=== PATIENT | female | born 1970 | race Caucasian/White ===

== ENCOUNTER 2018-07-15 19:16 | Emergency (ER) | payer MEDICAID ==
[~2018-07-15] VITALS: Ht 157.5 cm; Wt 118.2 kg
[~2018-07-15 19:16] MED LIST: ALBU6.7H INH; ATOR20TA66 PO; AZIT250T PO; CARV25TA2 PO; DICL-194 PO; DIPH-186 PO; GABA-532 PO; HYDR-4353 PO; HYDR25TA4 PO; LEVO100T9 PO; MEDR10TA PO; METH-360 PO; NITR100C6 PO; OMEP20CA4 PO; SUCR1TAB34 PO; TRAM50TA2 PO; VENL75CA55 PO
[2018-07-15] MEDS ORDERED: DIPH1TAB PO (21:09)
[2018-07-15 21:41] VITALS: BP 138/73
== END 2018-07-15 21:47 | disposition home or self-care (01) ==
LOC: ER 19:17
DX: R10.32 Left lower quadrant pain (principal); R19.7 Diarrhea, unspecified; E03.9 Hypothyroidism, unspecified; F12.90 Cannabis use, unspecified, uncomplicated; Z90.49 Acquired absence of other specified parts of digestive tract; Z98.51 Tubal ligation status; Z91.030 Bee allergy status; Z91.013 Allergy to seafood; Z79.899 Other long term (current) drug therapy
CPT/HCPCS: 99283

== ENCOUNTER 2019-07-29 19:41 | Emergency (ER) | payer MEDICAID ==
[~2019-07-29] VITALS: Ht 157.5 cm; Wt 138.6 kg
[~2019-07-29 19:41] MED LIST changes: -ALBU6.7H INH; +ALBU6.7H9 INH; +DIPH1TAB PO; +FLUC150T66 PO; -HYDR-4353 PO; +LACT1CAP65 PO; +METR-159 PO; +ONDA4TAB6 PO
--- NOTE | 2019-07-29 20:10 | NUR ---
warm blanke to abdomen for comfort and pain. call valdez in hand
[2019-07-29] MEDS ORDERED: ondansetron 4mg rapidly disintigrating tab PO ONE (21:10)
[2019-07-29] MEDS ORDERED: HYDROcodone/acetaminophen 5mg/325mg tablet PO ONE (21:10)
[2019-07-29] MEDS ORDERED: ONDA4TAB6 PO (22:07)
[2019-07-29] MEDS ORDERED: HYDR-4383 PO (22:07)
[2019-07-29 22:14] VITALS: BP 108/96
== END 2019-07-29 22:16 | disposition home or self-care (01) ==
LOC: ER 19:42
DX: N76.0 Acute vaginitis (principal); R10.32 Left lower quadrant pain; B96.89 Other specified bacterial agents as the cause of diseases classified elsewhere; I10 Essential (primary) hypertension; E03.9 Hypothyroidism, unspecified; G62.9 Polyneuropathy, unspecified; Z90.49 Acquired absence of other specified parts of digestive tract; Z98.890 Other specified postprocedural states; Z98.51 Tubal ligation status; F12.90 Cannabis use, unspecified, uncomplicated; Z91.030 Bee allergy status; Z91.013 Allergy to seafood; Z79.899 Other long term (current) drug therapy
CPT/HCPCS: 74176; 99284

== ENCOUNTER → 2023-11-05 | Outpatient (CLI) | payer MEDICAID ==
[~2023-11-05] MED LIST changes: +ALBU6.7H14 INH; -ALBU6.7H9 INH; -FLUC150T66 PO; +HYDR-4383 PO; -METR-159 PO
== END | disposition home or self-care (01) ==
LOC: RAD 11:38
PROVIDERS: ATTEND Nurse Practitioner Family
DX: S82.55XA Nondisplaced fracture of medial malleolus of left tibia, initial encounter for closed fracture (principal); S82.65XA Nondisplaced fracture of lateral malleolus of left fibula, initial encounter for closed fracture; M25.572 Pain in left ankle and joints of left foot; M76.62 Achilles tendinitis, left leg; M77.32 Calcaneal spur, left foot; Y93.89 Activity, other specified; X58.XXXA Exposure to other specified factors, initial encounter; Y92.89 Other specified places as the place of occurrence of the external cause; Y99.8 Other external cause status
CPT/HCPCS: 73610; 73620

== ENCOUNTER 2024-10-22 11:28 | Emergency (ER) | payer MEDICAID ==
[~2024-10-22] VITALS: Ht 162.6 cm; Wt 141.8 kg
[2024-10-22 12:09] LABS: UA COLLECTION TYPE CLN CATCH MIDSTREAM
[2024-10-22 12:10] LABS: CLARITY,URINE CLOUDY (Clear); COLOR,URINE AMBER (Yellow)
[2024-10-22 12:15] LABS: WBC,URINE 50-100 /HPF (0-4)
[2024-10-22 12:23] LABS: BACTERIA,URINE 2+ /HPF (Neg); RBC,URINE 20-50 /HPF (0-2)
[2024-10-22 12:24] LABS: SQUAMOUS EPITHELIAL CELL,UR MODERATE /LPF (FEW)
[2024-10-22 12:25] LABS: MUCUS STRANDS NONE SEEN /LPF (Neg)
--- NOTE | 2024-10-22 12:58 | Physician Documentation ---
History of Present Illness ~ Chief Complaint: Urinary Symptoms Stated Complaint: BLADDER INFECTION Time Seen by MD: 12:12 Primary Medical Doctor: Kelly LORENZANA HPI 54 Female presents to the ED with a complaint of urinary frequency and burning urination. States she does have a long history of urinary tract infections believes that is what is going on other today. denies any Fevers Day of Onset: Oct 22, 2024 Medication Reconciliation Allergies: Coded Allergies: bee pollen (Verified Allergy, Unknown, 07/29/19) shellfish derived (Verified Allergy, Unknown, 07/29/19) Scheduled Albuterol Sulfate (Proventil Hfa), 2 PUFFS INH Q6H Atorvastatin Calcium (Atorvastatin Calcium), 1 TABLET PO HS, (Reported) Azithromycin (Zithromax), 1 DOSPAK PO UD Carvedilol (Carvedilol), 1 TABLET PO BID, (Reported) Diclofenac Sodium (Diclofenac Sodium), 1 TABLET PO BID, (Reported) Diphenoxylate HCl/Atropine (Lomotil 2.5-0.025 mg Tablet), 1 TAB PO Q6H Gabapentin (Gabapentin), 2 CAP PO TID, (Reported) Hydrochlorothiazide (Hydrochlorothiazide), 1 TABLET PO DAILY, (Reported) Hydrocodone/Acetaminophen (Dante 5-325 Tablet), 1 TAB PO TID PRN Lactobacillus Acidophilus (Probiotic), 1 CAP PO Q8H Levofloxacin (Levofloxacin), 1 TAB PO DAILY Levothyroxine Sodium (Levothyroxine Sodium), 1 TABLET PO DAILY, (Reported) Medroxyprogesterone Acet (Provera), 1 TABLET PO HS, (Reported) Methocarbamol (Robaxin-750), 1 TAB PO Q12H Nitrofurantoin Monohyd/M-Cryst (Macrobid 100 mg Capsule), 1 CAP PO Q12H Omeprazole (Prilosec), 1 CAP PO FS, (Reported) Ondansetron Hcl (Zofran), 1 TAB PO Q6H PRN Ondansetron Hcl (Zofran), 1 TAB PO Q6H Phenazopyridine Hcl (Pyridium tablet), 1 TAB PO Q8H Sucralfate (Carafate), 1 TABLET PO QID, (Reported) Tramadol HCl (Tramadol HCl), 1 TABLET PO BID, (Reported) Venlafaxine Hcl (Effexor Xr), 1 CAP PO HS, (Reported) Scheduled PRN Diphenoxylate HCl/Atropine (Lomotil 2.5-0.025 mg Tablet), 1 TAB PO TID PRN for diarrhea, (Reported) Past Medical History Past Medical History: Peripheral Neuropathy, Hypertension, Inflammatory Bowel Dz, Hypothyroidism Past Surgical History: cholecystectomy, , tubal ligation Other Past Surgical History: endometrial ablation Alcohol Use: Rarely Drug Use: marijuana Lives with: Family Lives In: Home Occupation: employed Review of Systems All Other Systems at this time: Reviewed and Negative ROS As stated above in the HPI, otherwise all systems are reviewed and negative. Physical Exam Vital Signs: Temperature: 98.2, Source: Oral, Heart Rate: 84, Respiratory Rate: 16, BP: 113/65, Pulse Oximetry: 97, Weight: 141.800 Oxygen Flow Rate: 0 Physical Exam General: Alert, no apparent distress. Extremities: Normal range of motion, no deformity. Neurologic: Oriented x4. Psychiatric: Normal mood and affect. Skin: Normal color, warm and dry. No edema, no ecchymosis. Progress Results/Orders Results/Orders Vital Signs 10/22/24 10/22/24 10/22/24 11:36 12:39 13:15 Temp 98.2 98.5 Pulse 84 89 Resp 16 18 B/P (MAP) 113/65 139/87 Pulse Ox 97 98 O2 Flow Rate 0 Laboratory Tests Test 10/22/24 11:39 Urine Specimen Description Cln catch midstream Urine Color Emiliana Urine Clarity Cloudy Urine pH Urine Specific [place] Urine Protein Urine Glucose (UA) Urine Ketones Urine Occult Blood Urine Nitrite Urine Bilirubin Urine Urobilinogen Urine Leukocyte Esterase Urine RBC 20-50 Urine WBC 50-100 H Urine Squamous Epithelial Cells Moderate Urine Transitional Epithelial Cells Urine Bacteria 2+ Urine Mucus None seen Urine Culture Indicated Indicated Volume Urine Centrifuged 10 ml Urine Comment See note Microbiology Date/Time Source Procedure Growth Status 10/22/24 12:25 Urine Clean Catch Midstream Urine Culture - Preliminary Culture received. Resulted Medical Decision Making Findings 34-year-old female presents for suspected urinary tract infection based on her urinalysis. We will treat her empirically and advise her follow up with primary care for further evaluation Did bring a hand written abnormal result which indicated Klebsiella oxytoca positive result. Based on my discussion with Dr. burton the infectious disease specialist, he indicated starting patient on a fluoroquinolone like levofloxacin may be the best choice at this time. However ,we did obtain a urinalysis was a new culture. Follow up accordingly Urinary Diff Dx:Considerations: Include: AAA, , Aortic dissection, Appendicitis, Bowel obstruction, Cholelithiasis, Choleangitis, DJD, Ectopic , Hepatitis, HNP, Impaction, Intrauterine , Musculoskeletal pa in, Ovarian torsion, Pancreatitis, PID, Post-Op complication, Pyelonephritis, Renal failure, Strain, Urinary Obstruction, Urolithiasis, Urinary retention, UTI, Vaginitis, Other Departure Disposition: HOME / SELF CARE / HOMELESS Impression: Primary Impression: Acute urinary tract infection Condition: Stable Discharge Instructions: Urinary Tract Infection, Adult Additional Instructions: Take medication as prescribed follow up for any worsening symptoms Referrals: NO PRIMARY CARE PROVIDER (PCP) Prescriptions Levofloxacin (Levofloxacin) 500 Mg Tablet 1 TAB PO DAILY for 10 Days, #10 TAB Prov: RYAN CALIX NP 10/22/24 Phenazopyridine Hcl (Pyridium tablet) 100 Mg Tablet 1 TAB PO Q8H for urinary discomfort for 2 Days, #6 TAB 0 Refills Prov: RYAN CALIX NP 10/22/24 Education Educated: Patient Educated regarding: diagnosis Signature Scribe Signature: x Attestation: Scribed for Ryan Calix Np by Ryan Esposito NP . 10/22/24 18:42 RYAN CALIX NP Oct 22, 2024 12:58
[2024-10-22] MEDS ORDERED: SULF1TAB48 PO (13:00)
[2024-10-22] MEDS ORDERED: PHEN-786 PO (13:00)
[2024-10-22 13:15] VITALS: BP 139/87; PULSE 89; RESP 18; TEMP 98.5; O2SAT 98
[2024-10-22] MEDS ORDERED: LEVO-65 PO (13:24)
== END 2024-10-22 13:29 | disposition home or self-care (01) ==
LOC: ER 11:28
DX: N39.0 Urinary tract infection, site not specified (principal); I10 Essential (primary) hypertension; G62.9 Polyneuropathy, unspecified; E03.9 Hypothyroidism, unspecified; F12.90 Cannabis use, unspecified, uncomplicated; Z90.49 Acquired absence of other specified parts of digestive tract; Z91.030 Bee allergy status; Z98.51 Tubal ligation status; Z91.040 Latex allergy status; Z79.899 Other long term (current) drug therapy
CPT/HCPCS: 81001; 87088; 99283

== ENCOUNTER 2025-03-22 13:13 | Emergency (ER) | payer MEDICAID ==
[~2025-03-22] VITALS: Ht 175.3 cm; Wt 124.4 kg
[~2025-03-22 13:13] MED LIST changes: +PHEN-786 PO
--- NOTE | 2025-03-22 13:19 | ELECTROCARDIOGRAPH REPORT ---
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 LEWIS Rosario Measurements Intervals [place] Rate: 76 P: 14 LA: 192 QRS: 39 QRSD: 95 T: -10 QT: 415 QTc: 467 Interpretive Statements Sinus rhythm Low voltage, precordial leads Borderline repolarization abnormality Baseline wander in lead(s) I,III,aVL,V1,V2 Electronically Signed On 03-24-2025 18:02:[address] LEWIS Rosario Please click the below link to view image of tracing.
[2025-03-22 13:32] LABS: MEAN PLATELET VOLUME 7.4 FL (7.4-10.4); RED CELL DISTRIBUTION WIDTH 17.6 % (11.5-14.5)
--- NOTE | 2025-03-22 13:46 | RADIOLOGY REPORT ---
CHEST RADIOGRAPH Indication: CP Technique: Single frontal view of the chest was obtained Comparison: None FINDINGS: Lines and Tubes: None Lungs: No focal consolidation. Pleura: No effusion. No pneumothorax. Cardiomediastinal contours: Unremarkable Bones: No acute osseous abnormality. Questionable slight inferior subluxation of the left humeral head. IMPRESSION: No acute cardiopulmonary disease.
[2025-03-22 13:53] LABS: CREATININE 0.89 MG/DL (0.40-0.90); PRO BRAIN NATRIURETIC PEPTIDE 117 PG/ML (0-125); TOTAL CARBON DIOXIDE 35.3 MMOL/L (24-32); eCRCL 76 ML/MIN; eGFR 66 ML/MIN
[2025-03-22] MEDS ORDERED: potassium Cl 20 mEq SR tablet PO PRN (14:35)
[2025-03-22] MEDS ORDERED: potassium Cl 40MEQ/1/2NS 520ml 520 ML IV PRN (14:35)
--- NOTE | 2025-03-22 14:43 | Physician Documentation ---
History of Present Illness ~ Chief Complaint: Chest Pain Stated Complaint: CP NAUSEA Time Seen by MD: 14:31 Primary Medical Doctor: Kelly LORENZANA Mode of Arrival: POV, Ambulatory HPI 54-year-old female presents to the ED with a complaint of acute onset right- sided chest pain today while she was studying at [employer]. Denies any history of [place]. reports that the patient's pain was sharp in nature did not accompany shortness of breath but now she feels like out of it". She also has left-sided arm numbness and nausea Reports being an ongoing cigarette smoke Day of Onset: Mar 22, 2025 Medication Reconciliation Allergies: Coded Allergies: bee pollen (Verified Allergy, Unknown, 03/22/25) shellfish derived (Verified Allergy, Unknown, 03/22/25) Scheduled Albuterol Sulfate (Proventil Hfa), 2 PUFFS INH Q6H Atorvastatin Calcium (Atorvastatin Calcium), 1 TABLET PO HS, (Reported) Azithromycin (Zithromax), 1 DOSPAK PO UD Carvedilol (Carvedilol), 1 TABLET PO BID, (Reported) Diclofenac Sodium (Diclofenac Sodium), 1 TABLET PO BID, (Reported) Diphenoxylate HCl/Atropine (Lomotil 2.5-0.025 mg Tablet), 1 TAB PO Q6H Gabapentin (Gabapentin), 2 CAP PO TID, (Reported) Hydrochlorothiazide (Hydrochlorothiazide), 1 TABLET PO DAILY, (Reported) Hydrocodone/Acetaminophen ([place] 5-325 Tablet), 1 TAB PO TID PRN Lactobacillus Acidophilus (Probiotic), 1 CAP PO Q8H Levothyroxine Sodium (Levothyroxine Sodium), 1 TABLET PO DAILY, (Reported) Medroxyprogesterone Acet (Provera), 1 TABLET PO HS, (Reported) Methocarbamol (Robaxin-750), 1 TAB PO Q12H Nitrofurantoin Monohyd/M-Cryst (Macrobid 100 mg Capsule), 1 CAP PO Q12H Omeprazole (Prilosec), 1 CAP PO FS, (Reported) Ondansetron Hcl (Zofran), 1 TAB PO Q6H PRN Ondansetron Hcl (Zofran), 1 TAB PO Q6H Phenazopyridine Hcl (Pyridium tablet), 1 TAB PO Q8H Potassium Chloride* (K-Dur*), 1 TAB PO DAILY Sucralfate (Carafate), 1 TABLET PO QID, (Reported) Tramadol HCl (Tramadol HCl), 1 TABLET PO BID, (Reported) Venlafaxine Hcl (Effexor Xr), 1 CAP PO HS, (Reported) Scheduled PRN Diphenoxylate HCl/Atropine (Lomotil 2.5-0.025 mg Tablet), 1 TAB PO TID PRN for diarrhea, (Reported) Past Medical History Past Medical History: Peripheral Neuropathy, Hypertension, Inflammatory Bowel Dz, Hypothyroidism Past Surgical History: cholecystectomy, , tubal ligation Other Past Surgical History: endometrial ablation Alcohol Use: Rarely Drug Use: marijuana Lives with: Family Lives In: Home Occupation: employed Review of Systems All Other Systems at this time: Reviewed and Negative ROS As stated above in the HPI, otherwise all systems are reviewed and negative. Physical Exam Vital Signs: Temperature: 97.0, Source: Temporal, Heart Rate: 68, Respiratory Rate: 18, BP: 107/59, Pulse Oximetry: 98, Weight: 124.400 Oxygen Flow Rate: 0 Physical Exam General: Alert, no apparent distress. HEENT: PERRL, EOMI, no injection, moist mucous membranes. Neck: Full range of motion. Respiratory: Lungs clear, no respiratory distress. Chest: No accessory muscle use. Cardiovascular: Regular rate and rhythm, no murmurs. Gastrointestinal: Soft, nontender, nondistended. Bowels sounds present. Extremities: Normal range of motion, no deformity. Neurologic: Oriented x4. Psychiatric: Normal mood and affect. Skin: Normal color, warm and dry. No edema, no ecchymosis. Progress Results/Orders Results/Orders Completed Orders - FABIENNE FOX NP Ondansetron Inj. (Zofran 4mg/2ml Vial) (03/22/25 14:35) Mag & Alum Hydrox/Simeth Susp (Maalox Or (03/22/25 14:35) Lidocaine 2% Viscous (Xylocaine 2% Visco (03/22/25 14:35) Potassium Cl Sr Tablet (K-Dur Tablet) (03/22/25 14:35) Potassium Cl 40meq/1/2ns 520ml ([place] (03/22/25 14:35) Potassium Cl Inj (Potassium Cl Inj) (03/22/25 15:15) Potassium Cl Sr Tablet (K-Dur Tablet) (03/22/25 15:16) Potassium Cl 40meq/1/2ns 520ml ([place] (03/22/25 15:25) Potassium Cl Sr Tablet (K-Dur Tablet) (03/22/25 16:11) Medications Received in ER Medications (Trade) Dose Ordered Sig/Ailyn Route PRN Reason Start Time Stop Time Status Last Admin Dose Admin (Zofran 4mg/2ml vial) 4 mg ONCE ONCE IV 03/22/25 14:35 03/22/25 14:45 DC 03/22/25 15:08 4 MG (Maalox oral suspension) 30 ml ONCE ONCE PO 03/22/25 14:35 03/22/25 14:39 DC 03/22/25 15:11 30 ML (Xylocaine 2% Viscous 15mL cup) 15 ml Q4H PRN MM sore throat 03/22/25 14:35 03/22/25 16:24 DC 03/22/25 15:10 15 ML (K-DUR tablet) 40 meq ONCE STAT PO 03/22/25 15:16 03/22/25 15:19 DC 03/22/25 15:24 40 MEQ Potassium Chloride 520 ml @ 130 mls/hr ONCE ONCE IV 03/22/25 15:25 03/22/25 16:14 DC 03/22/25 15:39 130 MLS/HR (K-DUR tablet) 20 meq ONCE STAT PO 03/22/25 16:11 03/22/25 16:13 DC 03/22/25 16:16 20 MEQ Vital Signs 03/22/25 03/22/25 03/22/25 03/22/25 13:24 14:15 14:15 16:19 Temp 97.0 97.0 97.0 Pulse 68 68 67 Resp 18 15 18 20 B/P (MAP) 125/76 107/59 (75) 132/98 Pulse Ox 99 98 99 O2 Flow Rate 0 0 Laboratory Tests Test 03/22/25 13:24 03/22/25 15:06 White Blood Count 10.3 Red Blood Count 4.87 Hemoglobin 13.7 Hematocrit 40.7 Mean Corpuscular Volume 83.5 Mean Corpuscular Hemoglobin 28.2 Mean Corpuscular Hemoglobin Concent 33.7 Red Cell Distribution Width 17.6 H Platelet Count 457 H Mean Platelet Volume 7.4 Neutrophils (%) (Auto) 69.9 Lymphocytes (%) (Auto) 25.1 Monocytes (%) (Auto) 4.5 Eosinophils (%) (Auto) 0 Basophils (%) (Auto) 0.5 Neutrophils # (Auto) 7.2 Lymphocytes # (Auto) 2.6 Monocytes # (Auto) 0.5 Eosinophils # (Auto) 0.0 Basophils # (Auto) 0.1 CBC Comment Sodium Level 140 Potassium Level 2.5 *L Chloride Level 97 L Carbon Dioxide Level 35.3 H Anion Gap 8 Blood Urea Nitrogen 9 Creatinine 0.89 Estimated GFR/1.73 m2 66 BUN/Creatinine Ratio 10.1 Glucose Level 88 Calcium Level 9.1 Troponin I High Sensitivity 5 4 Pro-B-Type Natriuretic Peptide 117 Albumin 3.2 L Chemistry Comments Troponin I High Sens Percent Delta 20 Troponin I Hi Sens Absolute Change -1 Medical Decision Making Additional information obtaine: old records Findings Primary concerns with the patient had been her hypokalemia. She denies any further nausea and states that she is no longer having any chest pain Treat her with ongoing IV potassium and discharge her with p.o. potassium Heart Score: 2 Differential Dx:Considerations: Include: angina, aortic dissection, chest wall pain, cholelithiasis, CHF, costochondritis, esophageal reflux/spasm, gastritis, herpes zoster, myocardial infarction, pericarditis, pleuritis, pancreatitis, pneumonia, pneumothorax, pulmonary embolus, other Departure Disposition: 01 HOME / SELF CARE / HOMELESS Impression: Primary Impression: Hypokalemia Condition: Improved Referrals: NO PRIMARY CARE PROVIDER (PCP) Prescriptions Potassium Chloride* (K-Dur*) 20 Meq Tab.prt.sr 1 TAB PO DAILY for 10 Days, #10 TAB Prov: FABIENNE FOX NP 03/22/25 Signature Scribe Signature: j Attestation: As stated above in the HPI, otherwise all systems are reviewed and negative. FABIENNE FOX NP Mar 22, 2025 14:43
[2025-03-22] MEDS: ondansetron/PF 4mg/2ml inj IV ONE (15:08)
[2025-03-22] MEDS: LIDOcaine 2% Viscous 15ml cup MM PRN (15:10)
[2025-03-22] MEDS: mag hydrox/Alum hydrox/simeth 30ml oral suspension PO ONE (15:11)
[2025-03-22] MEDS ORDERED: Potassium Cl inj 40 MEQ in normal saline 500ml IV soln 500 ML IV ONE (15:15)
[2025-03-22] MEDS: potassium Cl 20 mEq SR tablet PO STA ×2 (15:24→16:16)
[2025-03-22] MEDS: potassium Cl 40MEQ/1/2NS 520ml 520 ML IV ONE (15:39)
[2025-03-22] MEDS ORDERED: POTA-207 PO (16:04)
[2025-03-22 16:19] VITALS: BP 132/98; PULSE 67; RESP 20; TEMP 97; O2SAT 99
== END 2025-03-22 16:24 | disposition home or self-care (01) ==
LOC: ER 13:14
DX: E87.6 Hypokalemia (principal); E03.9 Hypothyroidism, unspecified; G62.9 Polyneuropathy, unspecified; F12.90 Cannabis use, unspecified, uncomplicated; I10 Essential (primary) hypertension; Z91.030 Bee allergy status; Z91.013 Allergy to seafood; Z98.51 Tubal ligation status; Z90.49 Acquired absence of other specified parts of digestive tract; Z79.899 Other long term (current) drug therapy
CPT/HCPCS: 36415; 71045; 80048; 83880; 84484; 85025; 93005; 96365; 96375; 99285; J2405; J3480; J7040

== ENCOUNTER 2025-04-23 21:45 | Inpatient (IN) | payer MEDICAID ==
[~2025-04-23] VITALS: Ht 157.5 cm; Wt 123.4 kg
--- NOTE | 2025-04-23 23:09 | RADIOLOGY REPORT ---
CHEST RADIOGRAPH INDICATION: sob TECHNIQUE: Single frontal view of the chest was obtained COMPARISON: DI CHEST,SINGLE VIEW on DOS: 03/22/25 FINDINGS: Lines and Tubes: None Lungs: Clear Pleura: No effusion. No pneumothorax. Cardiomediastinal contours: Unremarkable Bones: Unremarkable IMPRESSION: 1. No acute disease.
[2025-04-24] MEDS: ketorolac trometh 15mg/ml vial 15 MG/ML ML IM ONE (00:17)
[2025-04-24 00:37] LABS: MEAN PLATELET VOLUME 8.2 FL (7.4-10.4); RED CELL DISTRIBUTION WIDTH 15.2 % (11.5-14.5)
[2025-04-24 00:41] LABS: CREATININE 0.98 MG/DL (0.40-0.90); TOTAL CARBON DIOXIDE 35.0 MMOL/L (24-32); eCRCL 52 ML/MIN; eGFR 59 ML/MIN
[2025-04-24] MEDS: potassium Cl 20mEq/100mL bag 100 ML IV SCH (00:50)
--- NOTE | 2025-04-24 00:53 | RADIOLOGY REPORT ---
EXAM: DI SCAPULA HISTORY: Pain with numbness and tingling in her bilateral upper extremities COMPARISON: None TECHNIQUE: Four views of the left shoulder were performed. FINDINGS: No acute fracture or dislocation are identified about the left shoulder. Moderate degenerative changes of the glenohumeral and acromioclavicular joints. IMPRESSION: 1. No acute fracture or dislocation is identified about the left shoulder. 2. Degenerative changes noted.
--- NOTE | 2025-04-24 00:55 | RADIOLOGY REPORT ---
INDICATION: Pain with numbness and tingling in her bilateral upper extremities TECHNIQUE: 3 views of the thoracic spine were obtained. COMPARISON: None FINDINGS: There is no evidence of fracture, subluxation and/or dislocation. The alignment is anatomical. The paravertebral soft tissues were unremarkable. IMPRESSION: 1. Of the visualized spine, there is no evidence for fracture or subluxation.
--- NOTE | 2025-04-24 00:57 | Physician Documentation ---
History of Present Illness ~ General Chief Complaint: Multiple Medical Complaints Stated Complaint: ALL OVER BODY PAIN Time Seen by MD: 22:15 Primary Medical Doctor: Kelly LORENZANA History of Present Illness Initial Comments This is a very pleasant 54-year-old female that presents to the emergency department for evaluation of intermittent tingling in her hands and feet over the last couple of days intermittent tingling in her face and genital region over the last couple of days although patient reports that the numbness and tingling in her genital region and face has subsided. Patient reports that she has pain in her right shoulder just below the scapula and the thoracic spine. Patient reports mild nausea but no vomiting no fevers no chills, reports significant amounts of diarrhea over the course of the last week. Patient denies chest pain chest pressure or headache at this time. Patient denies any other symptoms at this time. Medication Reconciliation Allergies: Coded Allergies: bee pollen (Verified Allergy, Unknown, 03/22/25) shellfish derived (Verified Allergy, Unknown, 03/22/25) Scheduled Albuterol Sulfate (Proventil Hfa), 2 PUFFS INH Q6H Atorvastatin Calcium (Atorvastatin Calcium), 1 TABLET PO HS, (Reported) Azithromycin (Zithromax), 1 DOSPAK PO UD Carvedilol (Carvedilol), 1 TABLET PO BID, (Reported) Diclofenac Sodium (Diclofenac Sodium), 1 TABLET PO BID, (Reported) Diphenoxylate HCl/Atropine (Lomotil 2.5-0.025 mg Tablet), 1 TAB PO Q6H Gabapentin (Gabapentin), 2 CAP PO TID, (Reported) Hydrochlorothiazide (Hydrochlorothiazide), 1 TABLET PO DAILY, (Reported) Hydrocodone/Acetaminophen ([place] 5-325 Tablet), 1 TAB PO TID PRN Lactobacillus Acidophilus (Probiotic), 1 CAP PO Q8H Levothyroxine Sodium (Levothyroxine Sodium), 1 TABLET PO DAILY, (Reported) Medroxyprogesterone Acet (Provera), 1 TABLET PO HS, (Reported) Methocarbamol (Robaxin-750), 1 TAB PO Q12H Nitrofurantoin Monohyd/M-Cryst (Macrobid 100 mg Capsule), 1 CAP PO Q12H Omeprazole (Prilosec), 1 CAP PO FS, (Reported) Ondansetron Hcl (Zofran), 1 TAB PO Q6H PRN Ondansetron Hcl (Zofran), 1 TAB PO Q6H Phenazopyridine Hcl (Pyridium tablet), 1 TAB PO Q8H Sucralfate (Carafate), 1 TABLET PO QID, (Reported) Tramadol HCl (Tramadol HCl), 1 TABLET PO BID, (Reported) Venlafaxine Hcl (Effexor Xr), 1 CAP PO HS, (Reported) Scheduled PRN Diphenoxylate HCl/Atropine (Lomotil 2.5-0.025 mg Tablet), 1 TAB PO TID PRN for diarrhea, (Reported) Past Medical History Past Medical History: Peripheral Neuropathy, Hypertension, Inflammatory Bowel Dz, Hypothyroidism Past Surgical History: cholecystectomy, , tubal ligation Other Past Surgical History: endometrial ablation Alcohol Use: Rarely Drug Use: marijuana Lives with: Family Lives In: Home Occupation: employed Review of Systems ROS As stated above in the HPI, otherwise all systems are reviewed and negative. Physical Exam Physical Exam Vital Signs: Temperature: 98.4, Source: Oral, Heart Rate: 86, Respiratory Rate: 16, BP: 106/59, Pulse Oximetry: 98, Weight: 123.400 Oxygen Flow Rate: 0 General Appearance VITALS: Reviewed and as above. GENERAL: Alert, no apparent distress. HEENT: Normocephalic, atraumatic, PERRL, EOMI, dry mucosa, no erythema RESPIRATORY: Lungs clear, normal breath sounds, no respiratory distress. CHEST: No accessory muscle use, no retractions CV: Regular rate, rhythm, no edema, no murmur, No: JVD GI: Soft, non-tender, bowels sounds present, no rebound, guarding, or rigidity BACK: No CVA tenderness, or swelling MUSCULOSKELETAL No deformities, no edema SKIN: Warm and dry, no rash, no rash visible during examination but patient has extremely dry hands and dry feet. NEURO: Oriented x4, No motor or sensory deficit PSYCH: Normal mood and affect, no agitation Progress Results/Orders Results/Orders Orders - NILES DURAND WHEEL INSPECTOR Urinalysis, Cult If Indicated (04/23/25 23:45) Hcg, Ur Ql (04/23/25 23:45) Scapula (04/23/25 23:45) Thoracic Spine Complete (04/23/25 23:45) Stat Ekg (04/24/25 ) Hs Troponin I W Calculations (04/24/25 00:48) PBNP (04/24/25 00:48) Procalcitonin (04/24/25 00:48) * Iv Access / Saline Lock * (04/24/25 00:48) Potassium Cl 20meq/100ml Bag (Potassium (04/24/25 00:50) Potassium Cl 20meq/15ml Oral (Potassium (04/24/25 08:00) MG (04/24/25 00:51) Potassium Cl 10meq/100ml Bag (Potassium (04/24/25 01:05) Completed Orders - NILES DURAND WHEEL INSPECTOR Cbc/Diff (04/23/25 23:45) CMP (04/23/25 23:45) Scapula (04/23/25 23:45) Thoracic Spine Complete (04/23/25 23:45) Ketorolac Trometh 15mg/Ml Vial (Toradol (04/23/25 23:50) Acetaminophen 325mg Tablet (Tylenol Tabl (04/23/25 23:50) Potassium Cl Sr Tablet (K-Dur Tablet) (04/24/25 01:01) Medications Received in ER Medications (Trade) Dose Ordered Sig/Ailyn Route PRN Reason Start Time Stop Time Status Last Admin Dose Admin (Toradol injection) 30 mg ONCE ONCE IM 04/23/25 23:50 04/23/25 23:51 DC 04/24/25 00:17 30 MG (Tylenol tablet) 975 mg ONCE ONCE PO 04/23/25 23:50 04/23/25 23:51 DC 04/24/25 00:16 975 MG Vital Signs 04/23/25 22:02 Temp 98.4 Pulse 86 Resp 16 B/P (MAP) 106/59 Pulse Ox 98 O2 Flow Rate 0 Laboratory Tests Test 04/24/25 00:13 White Blood Count 12.8 H Red Blood Count 4.95 Hemoglobin 14.1 Hematocrit 40.9 Mean Corpuscular Volume 82.7 Mean Corpuscular Hemoglobin 28.5 Mean Corpuscular Hemoglobin Concent 34.4 Red Cell Distribution Width 15.2 H Platelet Count 427 Mean Platelet Volume 8.2 Neutrophils (%) (Auto) 71.8 Lymphocytes (%) (Auto) 22.7 Monocytes (%) (Auto) 5.0 Eosinophils (%) (Auto) 0.1 Basophils (%) (Auto) 0.4 Neutrophils # (Auto) 9.2 H Lymphocytes # (Auto) 2.9 Monocytes # (Auto) 0.6 Eosinophils # (Auto) 0.0 Basophils # (Auto) 0.0 CBC Comment Sodium Level 141 Potassium Level 2.0 *L Chloride Level 97 L Carbon Dioxide Level 35.0 H Anion Gap 9 Blood Urea Nitrogen 4 L Creatinine 0.98 H Estimated GFR/1.73 m2 59 BUN/Creatinine Ratio 4.1 L Glucose Level 104 Calcium Level 7.6 L Total Bilirubin 0.8 Aspartate Amino Transf (AST/SGOT) 23 Alanine Aminotransferase (ALT/SGPT) 11 L Alkaline Phosphatase 97 Total Protein 7.9 Albumin 3.0 L Globulin 4.9 H Albumin/Globulin Ratio 0.6 L Chemistry Comments Medical Decision Making Additional information obtaine: other Findings Chief Concern: 54-year-old female with severe hypokalemia (potassium 2.0 mEq/L), significant diarrhea, and intermittent paresthesias. Medical Decision-Making: Complexity of Data Reviewed: Laboratory values: WBC 12.8 (elevated), potassium 2.0 mEq/L (severe hypokalemia) Imaging: X-rays of scapula and thoracic spine negative for abnormalities 12-lead ECG: Negative for acute changes Urinalysis: Pending Differential Diagnosis and Risk Assessment: The patient presents with severe hypokalemia (potassium 2.0 mEq/L), which meets criteria for urgent treatment given the level is 2.0 mEq/L. The clinical presentation of intermittent tingling in hands, feet, face, and genital region represents neuromuscular manifestations of severe potassium depletion. [1] Symptoms occur in approximately one-half of patients with severe hypokalemia and consist of weakness, pain, cramps, and paresthesias. [1] The most likely etiology is gastrointestinal potassium loss from significant diarrhea over the past week. Diarrhea is a well-established cause of hypokalemia through direct gastrointestinal losses. The elevated WBC count of 12.8 raises concern for an infectious etiology of the diarrhea, though pseudohypokalemia from marked leukocytosis is unlikely as this typically requires WBC >100,000/mm. [1-3] Additional considerations in the differential include: Infectious diarrhea: Most likely given acute onset with diarrhea and elevated WBC; pending urinalysis will help determine if concurrent urinary tract infection is present [4-5] Renal potassium wasting: Less likely given clinical context, but will require assessment of urine potassium if hypokalemia persists despite repletion [1-2] Transcellular shift: Unlikely given the chronicity and absence of precipitating factors such as insulin administration or thyrotoxicosis [6] Risk Stratification: This patient is at high risk for complications from severe hypokalemia: Cardiac arrhythmias: Although the 12-lead ECG is currently negative, ECG changes are not always present in hypokalemia, and the earliest change (decreased T- wave amplitude) may be subtle. Patients can develop serious arrhythmias including ventricular tachycardia, torsades de pointes, and cardiac arrest. [1][7] Respiratory failure: Severe muscle weakness can progress to respiratory muscle involvement [1] Rhabdomyolysis: Can occur with severe hypokalemia, particularly in the setting of ongoing losses [2][8] The degree of hypokalemia does not always correlate with symptom severity, and rapid onset increases likelihood of symptoms. The patient's neuromuscular symptoms (paresthesias, shoulder pain) indicate clinically significant potassium depletion requiring aggressive repletion. [1] Treatment Plan and Rationale: Potassium Repletion: Given the severe hypokalemia (2.0 mEq/L) with neuromuscular symptoms, combined oral and intravenous potassium repletion is appropriate. The planned regimen of 40 mEq oral plus 10 mEq IV, followed by additional supplementation, aligns with evidence-based guidelines: [1] For severe hypokalemia with symptoms, initial IV potassium (5-10 mEq over 15-30 minutes) can be given, followed by 20-40 mEq in isotonic fluids at up to 10 mEq/hour [1] Oral potassium is preferred when the patient has a functioning gastrointestinal tract and can be used concurrently with IV therapy [1][9] Generally, 20 mEq increases serum concentration by 0.2 mEq/L, though ongoing losses and intracellular shifts must be monitored [1] Potassium chloride is the preferred formulation as it is most effective for raising serum levels. IV potassium should be administered in glucose-free fluid s, as glucose may worsen symptoms by stimulating insulin release and causing further intracellular potassium shift. [1] Monitoring: Cardiac monitoring is warranted given the severe hypokalemia and risk of arrhythmias [1] Potassium levels should be monitored every 2-4 hours during acute repletion [1] Repeat serum potassium testing will confirm true hypokalemia and exclude pseudo hypokalemia [1] Diagnostic Workup: Pending urinalysis to evaluate for infection source If hypokalemia persists despite adequate repletion, will obtain urine potassium, sodium, chloride, and creatinine to assess for renal potassium wasting [1-2] Consider stool studies if diarrhea persists to identify infectious etiology [3][5] Fluid and Electrolyte Management: Oral rehydration preferred for diarrhea-related volume depletion [5] Monitor for other electrolyte abnormalities that may accompany severe diarrhea Address nausea to facilitate oral intake and medication administration Disposition: Admission is medically necessary for: Severe hypokalemia (2.0 mEq/L) requiring IV repletion and cardiac monitoring Neuromuscular symptoms indicating significant total body potassium depletion Need for frequent potassium monitoring (every 2-4 hours) during acute repletion phase Ongoing evaluation of diarrhea etiology with elevated WBC suggesting possible infection Risk of life-threatening complications including cardiac arrhythmias and respiratory failure The patient requires inpatient level of care for safe potassium repletion, continuous cardiac monitoring, and diagnostic evaluation to identify and treat the underlying cause of severe hypokalemia. Differential Diagnosis Please see MDM. Departure Disposition: ADMITTED INPATIENT Admission Level of Care: Med/Surg with Tele Impression: Primary Impression: Hypokalemia Condition: Stable Referrals: NO PRIMARY CARE PROVIDER (PCP) Education Educated: Patient Educated regarding: diagnosis, treatment, need for follow up Signature Scribe Signature: A Attestation: Scribed for Niles Durand by BEN Self . 04/24/25 01:17 NILES DURAND Apr 24, 2025 00:57
[2025-04-24] MEDS: POTASSIUM CHLORIDE 20 MEQ/15 ML oral solution PO SCH (01:06)
[2025-04-24] MEDS ORDERED: potassium Cl 20 mEq SR tablet PO PRN (01:10)
[2025-04-24] MEDS ORDERED: magnesium hydroxide 30ml (MOM) UD suspension PO PRN (01:10)
[2025-04-24] MEDS ORDERED: ondansetron/PF 4mg/2ml inj IV PRN (01:10)
[2025-04-24] MEDS ORDERED: magnesium Cl slow-release 64mg tablet PO PRN (01:10)
[2025-04-24] MEDS ORDERED: mag hydrox/Alum hydrox/simeth 30ml oral suspension PO PRN (01:10)
[2025-04-24] MEDS: potassium Cl 20 mEq SR tablet PO STA ×2 (01:18→11:03)
[2025-04-24] MEDS: potassium CL 10mEq/100ml bag 100 ML IV SCH (01:19)
[2025-04-24] MEDS ORDERED: morphine 4 MG/ML inj SYRINge IV PRN ×2 (01:25)
[2025-04-24] MEDS: normal saline 1000ml 1,000 ML IV SCH (01:26)
[2025-04-24 01:36] LABS: PRO BRAIN NATRIURETIC PEPTIDE 265.0 PG/ML (0-125)
[2025-04-24] MEDS: normal saline 1000ml 1,000 ML IV ONE ×2 (01:36→04:34)
[2025-04-24 01:45] LABS: PHOSPHORUS 3.3 MG/DL (2.3-4.5)
--- NOTE | 2025-04-24 02:07 | HISTORY AND PHYSICAL-Residence ---
History & Physical Providers to CC Resident Creating Document: HERNÁN MAYER, RENAN ~ History of Present Illness Primary Medical Doctor: Kelly LORENZANA Reason for Admit\Complaint: Severe hypokalemia History of Present Illness 54-year-old very pleasant female that presents to the emergency department with the chief complaints of tingling and weakness of all limbs for the past 2 days and diarrhea for the past 1 week. She endorses that she is having tingling sensation of all 4 limbs which was started 2 days back including genital area and over the chin , associated with pain in the neck and back of the head. She is complaining of the weakness of all limbs which was started 2 days back after having diarrhea for 5 days. She reported pain in the back of the neck. He endorses nausea. He has been with the diarrhea for the past 1 week, 7-8 episodes, watery.she has pain in her right shoulder just below the scapula and the thoracic spine. Patient reports mild nausea. Apart from this she could not able to pickle pumper the leg an hour before coming here and she is feeling numbness in legs and genital area. She reported slippage of footwear from today's night . She denied abdominal pain, abdominal distention, fever, vomiting, fall,chest pain , shortness of breath, wheezy, palpitation. She was here in the ER with hypokalemia last month. We discussed advanced directives with the patient and patient wants to be in full code. Allergies: Coded Allergies: bee pollen (Verified Allergy, Unknown, 03/22/25) shellfish derived (Verified Allergy, Unknown, 03/22/25) Home Medications Home Medications Active Pyridium tablet (Phenazopyridine HCl) 100 Mg Tablet 1 Tab PO Q8H 2 Days Zofran (Ondansetron Hcl) 4 Mg Tablet 1 Tab PO Q6H 5 Days [place] 5-325 Tablet (Hydrocodone/Acetaminophen) 1 Each Tablet 1 Tab PO TID PRN 3 Days Zofran (Ondansetron Hcl) 4 Mg Tablet 1 Tab PO Q6H PRN 2 Days Probiotic (Lactobacillus Acidophilus) 1 Each Capsule 1 Cap PO Q8H 10 Days Lomotil 2.5-0.025 mg Tablet (Diphenoxylate HCl/Atropine) 1 Each Tablet 1 Tab PO Q6H 5 Days Robaxin-750 (Methocarbamol) 750 Mg Tablet 1 Tab PO Q12H 30 Days Zithromax (Azithromycin) 250 Mg Tablet 1 Dospak PO UD Proventil Hfa (Albuterol Sulfate) 6.7 Gm Hfa.aer.ad 2 Puffs INH Q6H Macrobid 100 mg Capsule (Nitrofurantoin Monohyd/M-Cryst) 100 Mg Capsule 1 Cap PO Q12H 7 Days Reported Carvedilol 25 Mg Tablet 1 Tablet PO BID Hydrochlorothiazide 25 Mg Tablet 1 Tablet PO DAILY Levothyroxine Sodium 100 Mcg Tablet 1 Tablet PO DAILY Diclofenac Sodium 75 Mg Tablet.dr 1 Tablet PO BID Gabapentin 300 Mg Capsule 2 Cap PO TID Atorvastatin Calcium 20 Mg Tablet 1 Tablet PO HS Carafate (Sucralfate) 1 Gm Tablet 1 Tablet PO QID Tramadol HCl 50 Mg Tablet 1 Tablet PO BID Provera (Medroxyprogesterone Acet) 10 Mg Tablet 1 Tablet PO HS Prilosec (Omeprazole) 20 Mg Capsule.dr 1 Cap PO FS Effexor Xr (Venlafaxine Hcl) 75 Mg Cap.sr.24h 1 Cap PO HS Lomotil 2.5-0.025 mg Tablet (Diphenoxylate HCl/Atropine) 1 Each Tablet 1 Tab PO TID PRN Past Medical History Past Medical History Hyperlipidemia Recurrent hypokalemia UTI Hypothyroidism Inflammatory bowel disease Peripheral neuropathy Hypertension Bronchial asthma Past Surgical History Surgical History Comment cholecystectomy, , tubal ligation, endometrial ablation Family History Family History: Patient reports no known family medical history. Past Social History Smoking: Cigarettes, Less than 1 pack/day Alcohol Use: Rarely Drug Use: Marijuana Lives with: Family Lives In: Home Occupation: employed ROS All Other Systems: Reviewed and Negative ROS Reviewed in full and negative except positive pertinent as in HPI Exam Vitals: Vital Signs Date Time Temp Pulse Resp B/P (MAP) Pulse Ox O2 Delivery O2 Flow Rate FiO2 04/24/25 01:48 62 15 105/49 (67) 95 0 04/24/25 01:26 98.4 General: General: alert, awake, oriented to time place person. Not in acute distress. Morbidly obese. GCS is 15/15 HEENT: Normocephalic, atraumatic, PERRL, EOMI, no erythema. Dry mucosa is seen. No JVD/carotid upstroke Respiratory system: Bilateral normal vesicular breath sounds are heard. No crepitations/no wheezing/no added sounds Chest: No accessory muscle use, no retractions Cardiovascular system: Regular rate, rhythm, S1-S2 are heard,, no murmur/rubs/gallop Gastrointestinal: Soft, non-tender, bowels sounds present, no rebound, guarding, or rigidity Back: No CVA tenderness, or swelling Musculoskeletal: No deformities, no edema. Morbidly obese. Skin: Warm and dry, no rash but patient has extremely dry hands and dry feet. Neurological system: Higher mental functions are intact. Tone is decreased in all 4 limbs. Bulk is normal and power is 4/5in all 4 limbs. Deep tendon reflexes- Bilateral biceps and triceps is 1+. Supinator/knee/ankle are absent. Sensory system is intact. No cerebellum and No meningeal signs. Psychiatric: Normal mood and affect, no agitation Diagnostic Data Last Recorded Lab Results: 04/24/25 0013 04/24/25 1411 Advance Care Planning Advanced Care plannin - 30 Minutes Additional Plan Quadriparesis 2/2 Severe hypokalemia Above secondary to acute gastroenteritis with hypovolemia We considered the differential diagnosis of hypokalemic paralysis, hypokalemia secondary to GI loss, drug induced - albuterol We are correcting the potassium with potassium replacement protocol. We ordered urinary potassium level. She received 2 L of normal saline bolus in view of hypovolemia and We are giving the IV normal saline at the rate of 75 mL/hour . Considering her acute onset of weakness and sensory symptoms patient is also evaluating for AIDP(Gullian [place] syndrome). If MRI cervical and thoracic spine negative start treatment for GBS with IVIG 400mg/kg/day x 5 days Hypothyroidism TSH is normal and We will continue 100 mcg of Levothyroxine after medication reconciliation Hyperlipidemia Continue same dose of atorvastatin 20 mg as LDL is 70 Hypertension patient is on carvedilol, hydrochlorothiazide Blood pressure is in the lower side and patient is receiving 150 mL of normal saline after 2 L of bolus Bronchial asthma not in acute exacerbation Patient was on albuterol inhaler Nicotine use Nicotine 14 mg patch daily GERD Inflammatory bowel disease On omeprazole, sucralfate On venlafaxine Severe/Morbid obesity, class 3 obesity Patient is on Wegovy for weight loss and patient needs to follow up with primary care physician and she needs possible surgical intervention for severe obesity. Code status: Full code Diet: Regular DVT prophylaxis: SCDs Prognosis: Guarded Hernán Mayer resident, PGY 2 Date of Service: Apr 24, 2025 Billing Provider: ROBERTA DE LA GARZA MD Addendum Attestation I agree with the residents assessment and plan as below: 54 year old female admitted with tingling and weakness in all 4 limbs and diarrhea Plan: neuro consult replete K and repeat bmp stool analysis mIVF CCT 45 min using HIPPA compliant A/V technology HERNÁN MAYER, RES Apr 24, 2025 02:07 ROBERTA DE LA GARZA MD Apr 24, 2025 18:39
[2025-04-24] MEDS ORDERED: ESTR1TAB28 PO (02:08)
[2025-04-24] MEDS: magnesium sulf-water 2g/50mL 50 ML IV PRN (02:49)
[2025-04-24 03:30] VITALS: TEMP 98
[2025-04-24 03:45] LABS: CHOL/HDL RATIO 3.3 (0.00-4.99); LDL CHOLESTEROL 70 MG/DL (50-100)
[2025-04-24] MEDS: nicotine 14mg patch - 24hr TD ONE (04:06)
[2025-04-24] MEDS: magnesium sulf-water 4G/100mL 100 ML IV PRN (04:06)
--- NOTE | 2025-04-24 04:27 | [facility] CONSULT REPORT ---
[facility] Procedure Note [facility] Procedure Note Consult [facility] Note # Demographics Consult Type: General Neurology Patient Location: Emergency Room First Name: Feng Last Name: Ariadna Date of : 02/09/1971 Age: 54 Gender: Male Facility: [facility] Time of Initial Page (): 04/24/2025 03:23 First Contact with Site (): 04/24/2025 03:24 # HPI History: 54 y/o F presents with progressive ascending paresthesias bilat legs and hands with difficulty walking. Symptom onset a few days ago. She has a diarrheal illness. # Exam Time of Exam (): 04/24/2025 04:00 Mental Status: - awake - alert and oriented x 3 - follows commands Language: - normal speech Cranial Nerves: - normal Motor: - no drift Sensory: - decreased sensation left lower extremity - decreased sensation left upper extremity - decreased sensation right lower extremity - decreased sensation right upper extremity Cerebellar: - normal cerebellar exam # Assessment Impression: - Guillain Roebling # Plan Imaging: (urgency: routine): - MRI C spine - MRI T spine Diagnostic Test: - Lumbar puncture: cell count, protein, glucose, gram stain, and culture Therapy/Evaluation: - PT/OT evaluation DVT Prophylaxis: - enoxaparin (Lovenox) 40 mg subcutaneously daily Other: - If patient has any neurological deterioration please call me back immediately Additional Recommendations: If MRI cervical and thoracic spine negative start treatment for GBS with IVIG 400mg/kg/day x 5 days # Logistics Attestation of consult completion: The patient is located at: [facility]. Facility staff participated in the visit. I performed this telemedicine visit from my offsite office utilizing interactive 2 way audio and visual telecommunication technology at the request of the onsite emergency room provider. Total time spent in telemedicine encounter: I spent 30 minutes reviewing clinical data and/or imaging, obtaining history, examining the patient, communicating with the onsite care team, and in preparation of this report. # Demographics First Name: Feng Last Name: Ariadna Facility: [facility] Electronically signed at 04/24/2025 04:27 () by Milagros Reilly DO Neuro Consult Order placed for: OLIVIA Hunter DO Apr 24, 2025 04:27
[2025-04-24] MEDS: potassium Cl 40MEQ/1/2NS 520ml 520 ML IV PRN (04:38)
--- NOTE | 2025-04-24 05:30 | ELECTROCARDIOGRAPH REPORT ---
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
[2025-04-24] MEDS: potassium Cl 20 mEq SR tablet PO PRN (06:58)
[2025-04-24 07:44] LABS: LEUKOCYTE ESTERASE ,URINE NEGATIVE (Neg); NITRITES, URINE NEGATIVE (Neg); OCCULT BLOOD,URINE NEGATIVE (Neg)
[2025-04-24 07:45] LABS: URINE HCG NEGATIVE (NEG)
[2025-04-24 07:53] LABS: UA COLLECTION TYPE CLN CATCH MIDSTREAM
[2025-04-24] MEDS: K and/or MAG REPLACEMENT MC SCH (08:00)
[2025-04-24] MEDS: docusate sod 100mg capsule PO SCH (08:00)
[2025-04-24] MEDS ORDERED: enoxaparin 30mg/0.3ml syringe SUBCUT SCH (08:00)
[2025-04-24] MEDS: ringers solution, lacted 1,000 ML IV ONE (08:07)
[2025-04-24] MEDS ORDERED: enoxaparin 40mg/0.4ml syringe SUBCUT SCH (08:14)
--- NOTE | 2025-04-24 09:08 | RADIOLOGY REPORT ---
EXAM: CT CT CHEST ABDOMEN PELVIS History: sepsis Comparison Study: Chest radiograph performed same day TECHNIQUE: Multidetector spiral CT of the chest, abdomen and pelvis was performed from lower neck to pubic symphysis without intravenous contrast. Axial, coronal and sagittal multiplanar reformats were performed by the technologist on a separate workstation. Radiation Dose : 1. Chest/Abdomen/Pelvis: CTDIvol 23.0 mGy, DLP 1816.9 mGy*cm. FINDINGS: Lower neck: Unremarkable thyroid. Lungs: There is a 5 mm ground-glass nodule in the right lower lobe. Bilateral lower lobe atelectasis. Central airways: Patent. Airways: The tracheobronchial tree is patent. Pleura: No pneumothorax. No pleural effusion. Heart/Vascular Structures: The heart is normal in size. Normal caliber thoracic aorta and main pulmonary artery. No pericardial effusion. Lymph Nodes: No adenopathy. Liver: The liver is normal in size. Gallbladder and Biliary Tree: Cholecystectomy. No biliary ductal dilatation. Spleen: Unremarkable Pancreas: Unenhanced pancreas is normal in appearance. No peripancreatic inflammatory change. Adrenal Glands: Unremarkable Kidneys: Kidneys are symmetric in size without calculi or hydronephrosis. Urinary bladder: Unremarkable Gastrointestinal tract: The stomach is grossly normal in appearance. The small bowel is normal in caliber. The colon is normal in caliber. The appendix is normal in caliber. Peritoneum: No pneumoperitoneum. No ascites. Lymphadenopathy: No mesenteric, retroperitoneal or periportal lymphadenopathy. Abdominal Wall and Mesentery: Unremarkable. Vasculature: Aorta is normal in caliber Pelvic Organs: Unremarkable Musculoskeletal: No aggressive focal bony lesions, acute fractures or dislocation. IMPRESSION: 1. No acute process in the chest, abdomen or pelvis. 2. Bilateral lower lobe atelectasis. 3. Cholecystectomy.
[2025-04-24] MEDS: CefTRIAXone 2gm/D5W 50ml BAG 50 ML IV SCH (09:21)
[2025-04-24 10:58] LABS: URINE AMPHETAMINE SCREEN NEGATIVE (Neg); URINE BARBITUATE SCREEN NEGATIVE (Neg); URINE BENZODIAZEPINES SCREEN NEGATIVE (Neg); URINE CANNABINOID SCREEN NEGATIVE (Neg); URINE COCAINE SCREEN NEGATIVE (Neg); URINE METHADONE SCREEN NEGATIVE (Neg); URINE OPIATE SCREEN NEGATIVE (Neg); URINE PHENCYCLIDINE SCREEN NEGATIVE (Neg)
--- NOTE | 2025-04-24 11:45 | CONSULTATION REPORT - RESIDENT ---
Consult Providers to CC Resident Creating Document: ARMOND HAINES, RES CC: PRATIBHA DESIR MD History of Present Illness Reason for Admit\Complaint: Diarrhea and weakness of upper and lower extremities History of Present Illness A 54-year-old female with PMH of HTN and recurrent hypokalemia presented to the ED in view of diarrhea since one week and tingling, numbness and weakness of upper and lower extremities since two days. Patient states that she has about 7-8 episodes of watery foul-smelling nonbloody diarrhea every day for the last one week. Patient denies associated abdominal pain, fever chills. Patient denies having food from outside, travel history, sick contacts or similar symptoms in the family. Patient denies recent hospitalization or use of antibiotics. Never underwent upper GI endoscopy, underwent colonoscopy many years ago that was unremarkable. Patient uses omeprazole for the last five years in view of GERD. Patient's last bowel movement this morning was more formed. GI is consulted in view of acute diarrheal episodes. Allergies: Coded Allergies: bee pollen (Verified Allergy, Unknown, 03/22/25) shellfish derived (Verified Allergy, Unknown, 03/22/25) Home Medications Home Medications Active Robaxin-750 (Methocarbamol) 750 Mg Tablet 1 Tab PO Q12H 30 Days Reported Estradiol 1 Mg Tablet 1 Tab PO DAILY Carvedilol 25 Mg Tablet 1 Tablet PO BID Hydrochlorothiazide 25 Mg Tablet 1 Tablet PO DAILY Levothyroxine Sodium 100 Mcg Tablet 1 Tablet PO DAILY Atorvastatin Calcium 20 Mg Tablet 1 Tablet PO HS Carafate (Sucralfate) 1 Gm Tablet 1 Tablet PO QID Prilosec (Omeprazole) 20 Mg Capsule.dr 1 Cap PO FS Effexor Xr (Venlafaxine Hcl) 75 Mg Cap.sr.24h 1 Cap PO HS Past Medical History Past Medical History HLD UTI Hypothyroidism Recurrent hypokalemia Peripheral neuropathy HTN Bronchial asthma GERD Past Surgical History Surgical History Comment Cholecystectomy Tubal ligation Endometrial ablation Family History Family History: Patient reports no known family medical history. Past Social History Social History Comment Lives at home Denies smoking, alcohol use ROS ROS Constitutional: No fever, chills, dizziness, weight gain or loss Eyes: No pain, erythema, discharge, blurring of vision ENT: No sore throat, epistaxis, tinnitus Cardiovascular: No Shortness of breath. Chest pressure, chest discomfort, palpitations, syncope, lower extremity edema, paroxysmal nocturnal dyspnea Respiratory: No Shortness of breath and cough present, No hemoptysis Gastrointestinal: Diarrhea, decreased appetite, No nausea, vomiting, constipation, hematemesis, abdominal pain, bloating, melena or fresh blood Musculoskeletal: No chronmic edema. Integumentary: No change in skin, hair, nails. No swelling, bruising, abrasions Neurologic: No headache, neck pain, numbness or tingling of the extremities, weakness Psychiatric: No delusions, depression, loss of interest in normal activity or change in sleep pattern, hallucinations, suicidal ideations Endocrine: No fatigue, weakness, polydipsia, polyuria, change in appetite, heat or cold intolerance, sweating, dry skin Exam Vitals: Vital Signs Date Time Temp Pulse Resp B/P (MAP) Pulse Ox O2 Delivery O2 Flow Rate FiO2 04/24/25 11:05 68 13 101/59 (73) 95 0 04/24/25 03:30 98.0 General: General: Alert, awake, oriented, not in acute distress HEENT: PERRLA, no icterus, pallor, lymphadenopathy, carotid bruit Respiratory system: Bilateral vesicular breath sounds heard, no adventitious breath sounds CVS: S1-S2 heard, no murmurs/rubs/gallop GI: Soft, nontender, no organomegaly, no guarding/rigidity, bowel sounds present Neuro: No focal neurological deficits present Mental status exam: alert and consciousness, orientation, memory, speech - Cranial nerve test: Cranial nerves 2-12 intact - Motor system: Nutrition, Tone 3+, Power 5/5, no involuntary movements - Sensory system: Intact - Reflex testing: Biceps, triceps and knee reflexes 2+ - Cerebellar: Normal Extremities: No edema cyanosis clubbing/deformities Skin: Warm and dry Diagnostic Data Last Recorded Lab Results: 04/24/25 0013 04/24/25 0854 Diagnostic Data: Laboratory Tests Test 04/24/25 08:54 D-Dimer 0.60 MG/L FEU (0-0.50) H D-Dimer Comment Additional Plan Assessment: 54-year-old female with past medical history of GERD presented to the ED in view of acute diarrheal episodes for the last one week and generalized weakness of upper and lower extremities associated with numbness and paresthesias. GI is consulted in view of diarrheal episodes. Plan: Acute watery diarrhea 2/2 probably gastroenteritis Inflammatory, less likely Continue IV fluid resuscitation and symptomatic management Recommend outpatient/inpatient colonoscopy based on patient's preferences Patient might benefit from stool studies Symptomatic treatment Hypovolemia secondary to the above IV fluid resuscitation Continue on vitals Hypokalemia secondary to the above Potassium replacement per protocol Continue to monitor potassium GERD Continue omeprazole Bronchial asthma not in exacerbation Nicotine use disorder HLD Management per hospitalist team Disposition: Continue care per hospitalist team, symptomatic management and colonoscopy either inpatient or outpatient based on patient's preferences Code status: Full code Diet: Clear liquid DVT prophylaxis: Lovenox Armond Haines MD Internal Medicine, PGY 2 Date of Service: Apr 24, 2025 Billing Provider: PRATIBHA DESIR MD, SIVA, RES Apr 24, 2025 11:45
[2025-04-24] MEDS: magnesium sulf-water 4G/100mL 100 ML IV ONE (12:58)
[2025-04-24] MEDS: enoxaparin 40mg/0.4ml syringe SUBCUT ONE (12:59)
[2025-04-24 14:03] VITALS: BP 108/69; PULSE 70; RESP 17; O2SAT 97
[2025-04-24] MEDS: potassium Cl 20 mEq SR tablet PO SCH (14:11)
[2025-04-24 14:33] LABS: CREATININE 0.78 MG/DL (0.40-0.90); TOTAL CARBON DIOXIDE 28.8 MMOL/L (24-32); eCRCL 65 ML/MIN; eGFR 77 ML/MIN
[2025-04-24] MEDS ORDERED: FLU VACC TS2025-26(6MOS UP)/PF (FLULAVAL) 45 MCG/0.5 ML SYRINGE IMVAC ONE (15:30)
== END 2025-04-24 15:41 | disposition left against medical advice (07) | DRG 249 ==
LOC: ER 21:46 → ED HOLD 04-24 01:18
PROVIDERS: ADMIT Internal Medicine; ATTEND Family Medicine
DX: K52.89 Other specified noninfective gastroenteritis and colitis (principal); G82.50 Quadriplegia, unspecified; E03.9 Hypothyroidism, unspecified; I10 Essential (primary) hypertension; E66.01 Morbid (severe) obesity due to excess calories; E87.6 Hypokalemia; Z53.21 Procedure and treatment not carried out due to patient leaving prior to being seen by health care provider; G62.9 Polyneuropathy, unspecified; K21.9 Gastro-esophageal reflux disease without esophagitis; Z91.030 Bee allergy status; Z91.013 Allergy to seafood; Z79.899 Other long term (current) drug therapy; Z90.49 Acquired absence of other specified parts of digestive tract; Z98.891 History of uterine scar from previous surgery; Z68.42 Body mass index [BMI] 45.0-49.9, adult
CPT/HCPCS: 36415; 71045; 71250; 72074; 73010; 74176; 80048; 80053; 80061; 80305; 81003; 81025; 83735; 83880; 83930; 84100; 84132; 84133; 84145; 84443; 84484; 85025; 85379; 87081; 93005; 96365; 96366; 96372; 99285; A4314; A4615; G0378; J0696; J1650; J1885; J2919; J3475; J3480; J7030; J7040; J7120